=== PATIENT | female | born 1985 | race Caucasian/White ===

== ENCOUNTER 2017-08-30 00:55 | Inpatient (IN) | payer OTHER ==
[2017-08-30] MEDS ORDERED: METHYLERGONOVINE 0.2 MG/ML 1 ML AMP IM PRN (01:23)
[2017-08-30] MEDS ORDERED: OXYTOCIN 10 UNIT/ML 1 ML VIAL IM PRN (01:23)
[2017-08-30] MEDS ORDERED: LIDOCAINE 1% (PF) 10 MG/ML (30 ML SDV) SQ PRN (01:23)
[2017-08-30] MEDS ORDERED: AMPICILLIN 2,000 MG in SODIUM CHLORIDE 0.9% 100 ML IVPB STA (01:23)
[2017-08-30] MEDS ORDERED: CARBOPROST TROMETHAMINE 250 MCG/ML 1 ML AMP IM PRN (01:23)
[2017-08-30] MEDS ORDERED: TERBUTALINE 1 MG/ML VIAL SQ PRN (01:23)
[2017-08-30] MEDS ORDERED: LACTATED RINGERS 1,000 ML IV SCH (01:30)
[2017-08-30 01:38] VITALS: BMI 26.9
[2017-08-30 02:06] LABS: Basophils % (A) 0 %; Eosinophils # (A) 0.3 k/uL (0-0.7); Eosinophils % (A) 2 %; HCT 32.1 % (34.0-46.0); HGB 10.9 gm/dL (11.4-16.0); Lymphocytes # (A) 1.8 k/uL (1.0-4.8); Lymphocytes % (A) 17 %; MCH 30.3 pg (25.0-35.0); MCHC 34.1 g/dL (31.0-37.0); MCV 88.7 fL (80.0-100.0); Mean Platelet Volume 7.8; Monocytes # (A) 0.5 k/uL (0-1.0); Monocytes % (A) 4 %; Neutrophils # (A) 8.1 k/uL (1.3-7.7); Neutrophils % (A) 73 %; Platelet Count 312 k/uL (150-450); RBC 3.62 m/uL (3.80-5.40); RDW 13.4 % (11.5-15.5)
[2017-08-30] MEDS ORDERED: BUTORPHANOL 1 MG/ML 1 ML VIAL IV PRN (02:31)
--- NOTE | 2017-08-30 05:12 | P.HPOB ---
History of Present Illness H&P Date: 08/30/17 Chief Complaint: SROM 32 year old presents at 39 weeks 2 days with SROM. SHe is sindy irregularly and heart tones are 130's and reactive. cervix is 3/70/-2. Review of Systems All systems: negative Constitutional: Denies chills, Denies fever Eyes: denies blurred vision, denies pain Ears, nose, mouth and throat: Denies headache, Denies sore throat Cardiovascular: Denies chest pain, Denies shortness of breath Respiratory: Denies cough Gastrointestinal: Denies abdominal pain, Denies diarrhea, Denies nausea, Denies vomiting Genitourinary: Denies dysuria, Denies hematuria Musculoskeletal: Denies myalgias Integumentary: Denies pruritus, Denies rash Neurological: Denies numbness, Denies weakness Psychiatric: Denies anxiety, Denies depression Endocrine: Denies fatigue, Denies weight change Past Medical History Past Medical History: No Reported History Additional Past Medical History / Comment(s): Obstetric history: She has had 3 previous vaginal deliveries and one miscarriage at 18 weeks. This is her fifth . She's had care with Dr. Alcazar since 24 weeks. Blood type A positive, antibodies negative, rubella immune, RPR nonreactive, hepatitis B negative, HIV negative, abnormal 1 hour close tolerance test but normal 3 hour, GBS positive. History of Any Multi-Drug Resistant Organisms: None Reported Additional Past Surgical History / Comment(s): wisdom teeth removed Past Anesthesia/Blood Transfusion Reactions: No Reported Reaction Past Psychological History: No Psychological Hx Reported Smoking Status: Never smoker Past Drug Use History: None Reported - Past Family History Father Additional Family Medical History / Comment(s): grandfather heart disease Medications and Allergies Home Medications Medication Instructions Recorded Confirmed Type Iron/Folate 9/Vit C/D3/B6/B12 1 each PO DAILY 08/30/17 08/30/17 History [Nufera Tablet] Pnv No.95/Ferrous Fum/Folic AC 1 tab DAILY 08/30/17 08/30/17 History [ Multivitamin Tablet] Allergies Allergy/AdvReac Type Severity Reaction Status Date / Time No Known Allergies Allergy Verified 08/30/17 01:20 Exam Osteopathic Statement: *. No significant issues noted on an osteopathic structural exam other than those noted in the History and Physical/Consult. - Vital Signs Vital signs: Vital Signs Temp Pulse Resp BP Pulse Ox 08/30/17 01:25 98.8 F 82 16 128/81 100 08/30/17 01:20 98.8 F 82 16 128/81 Intake and Output 08/29/17 08/29/17 08/30/17 14:59 22:59 06:59 Other: Weight 66.678 kg Patient Weight 08/30/17 06:59 Weight 66.678 kg Heart: Regular rate and rhythm Lungs: Clear to auscultation bilaterally Abdomen: Soft, nontender Extremities: Negative Homans sign Results Result Diagrams: 08/30/17 01:35 Abnormal Lab Results - Last 24 Hours (Table) 08/30/17 Range/Units 01:35 WBC 11.0 H (3.8-10.6) k/uL RBC 3.62 L (3.80-5.40) m/uL Hgb 10.9 L (11.4-16.0) gm/dL Hct 32.1 L (34.0-46.0) % Neutrophils # 8.1 H (1.3-7.7) k/uL Assessment and Plan (1) Spontaneous rupture of membranes Current Visit: Yes Status: Acute Code(s): CFH5228 - SNOMED Code(s): 837716881 (2) Normal labor Current Visit: Yes Status: Acute Code(s): O80 - ENCOUNTER FOR FULL-TERM UNCOMPLICATED DELIVERY; Z37.9 - OUTCOME OF DELIVERY, UNSPECIFIED SNOMED Code(s ): 03136188 (3) Positive GBS test Current Visit: Yes Status: Acute Code(s): B95.1 - STREPTOCOCCUS, GROUP B, CAUSING DISEASES [place] SNOMED Code(s): 1854416215304 Plan: 1. Admit to family place 2. Antibiotics for GBS prophylaxis 3. Expectant management 4. Anticipate normal vaginal delivery
[2017-08-30] MEDS ORDERED: AMPICILLIN 1,000 MG in SODIUM CHLORIDE 0.9% 50 ML IVPB SCH (05:30)
[2017-08-30] MEDS ORDERED: ZOLPIDEM 5 MG TAB PO PRN (06:21)
[2017-08-30] MEDS ORDERED: diphenhydrAMINE 50 MG CAP PO PRN (06:21)
[2017-08-30] MEDS ORDERED: BENZOCAINE/MENTHOL SPRAY 1 GM/SPRAY AEROSOL TOPICAL PRN (06:21)
[2017-08-30] MEDS ORDERED: WITCH HAZEL 1 EACH MED..PAD TOPICAL PRN (06:21)
[2017-08-30] MEDS ORDERED: HYDROCORTISONE 2.5% RECTAL CREAM 30 GM TUBE RECTAL PRN (06:21)
[2017-08-30] MEDS ORDERED: SIMETHICONE 80 MG CHEWABLE PO PRN (06:21)
[2017-08-30] MEDS ORDERED: diphenhydrAMINE 50 MG/ML 1 ML VIAL IVP PRN ×2 (06:21)
[2017-08-30] MEDS ORDERED: LANOLIN CREAM 5 GM TUBE TOPICAL PRN (06:21)
[2017-08-30] MEDS ORDERED: diphenhydrAMINE 25 MG CAP PO PRN (06:21)
[2017-08-30] MEDS ORDERED: HYDROcodone/APAP 5-325MG 1 EACH TAB PO PRN ×2 (06:21)
--- NOTE | 2017-08-30 06:24 | P.PROBDLV ---
Vaginal Delivery Note - . Vaginal Delivery Note: 32-year-old presents at 39 weeks and 2 days with spontaneous rupture membranes and in labor. Her cervix is 3 cm dilated, 70% effaced, -2 station. She is sindy irregularly. heart tones are 130-135 with moderate variability and reactive. Her water broke at 12:30 AM with clear fluid. She is GBS positive on was started for GBS prophylaxis. Her cervix was completely dilated by 5:58 AM, she pushed and delivered a viable female infant over intact perineum at 6:12 AM. Head delivered OA, anterior shoulder delivered with gentle downward traction followed by posterior shoulder and rest of body. Nose and mouth bulb suctioned, cord clamped and cut, infant placed on mother's abdomen. Apgars 9, 9, weight 8 lbs. 5 oz. Placenta delivered spontaneously, intact with three-vessel cord at 6:14 AM. Vagina, cervix, and perineum were inspected. No lacerations noted. Estimated blood loss 150 mL. Mother and baby in stable condition.
[2017-08-30] MEDS ORDERED: OXYTOCIN 20 UNITS/1000 ML NS 1,000 ML IV SCH (06:30)
[2017-08-30] MEDS: IBUPROFEN 600 MG TAB PO PRN ×2 (06:36→20:49)
[2017-08-30] MEDS: ACETAMINOPHEN TAB 325 MG TAB PO PRN ×2 (11:59→16:23)
[2017-08-30] MEDS: SENNOSIDES-DOCUSATE SODIUM 1 EACH TAB PO SCH ×2 (19:35→22:23)
[2017-08-31 00:19] VITALS: PULSE 81
[2017-08-31] MEDS: ACETAMINOPHEN TAB 325 MG TAB PO PRN (02:54)
--- NOTE | 2017-08-31 06:59 | P.DS ---
Providers Date of admission: 08/30/17 01:12 Expected date of discharge: 08/31/17 Attending physician: Junior Alcazar Primary care physician: Stated None Hospital Course: Tej is doing very well day 1. She is ambulating, voiding, and she is tolerating her diet. She voices no complaints and requests discharged home today. Vital signs are stable and afebrile. Heart regular, lungs clear, extremities are without pain. Abdomen is soft, uterus is firm below the umbilicus, and lochia is reported to be light. Assessment day 1. Plan discharged home follow me in 6 weeks. Prescription for Motrin was sent to the pharmacy. All other questions are answered for her prior to her discharge. She is stable for discharge this time. Patient Condition at Discharge: Good Plan - Discharge Summary New Discharge Prescriptions: New Ibuprofen [Motrin] 600 mg PO Q6HR PRN #30 tab PRN Reason: Pain No Action Pnv No.95/Ferrous Fum/Folic AC [ Multivitamin Tablet] 1 tab DAILY Iron/Folate 9/Vit C/D3/B6/B12 [Nufera Tablet] 1 each PO DAILY Discharge Medication List Iron/Folate 9/Vit C/D3/B6/B12 [Nufera Tablet] 1 each PO DAILY 08/30/17 [History] Pnv No.95/Ferrous Fum/Folic AC [ Multivitamin Tablet] 1 tab DAILY [History] Ibuprofen [Motrin] 600 mg PO Q6HR PRN #30 tab 08/31/17 [Rx] Follow up Appointment(s)/Referral(s): Junior Alcazar DO [Doctor of Osteopathic Medicine] - 6 Weeks Activity/Diet/Wound Care/Special Instructions: No heavy lifting, limit stairs and driving, and pelvic rest. If any high temperatures, heavy bleeding, or severe pain call my office Discharge Disposition: HOME SELF-CARE
[2017-08-31] MEDS: IBUPROFEN 600 MG TAB PO PRN (07:45)
[2017-08-31] MEDS: SENNOSIDES-DOCUSATE SODIUM 1 EACH TAB PO SCH (07:45)
[2017-08-31 08:44] VITALS: BP 112/73; RESP 17; TEMP 98
== END 2017-08-31 11:55 | disposition home or self-care (01) | DRG 775 ==
LOC: FBPOP 00:55 → 4FBP 01:12
PROVIDERS: ADMIT Obstetrics & Gynecology; ATTEND Obstetrics & Gynecology
PROC: 10E0XZZ Delivery of Products of Conception, External Approach (ICD-10-PCS; principal; 2017-08-30)
DX: O99.824 Streptococcus B carrier state complicating childbirth (principal); Z37.0 Single live birth; Z3A.39 39 weeks gestation of pregnancy
CPT/HCPCS: 85025; 88307

== ENCOUNTER 2021-06-26 21:36 | Observation (INO) | payer OTHER ==
--- NOTE | 2021-06-26 22:52 | ED ---
Arrhythmia/Palpitations HPI - General Chief Complaint: Arrhythmia/Palpitations Stated Complaint: Irregular heart rate Time Seen by Provider: 06/26/21 22:49 Source: patient, family, RN notes reviewed, old records reviewed Mode of arrival: ambulatory Limitations: no limitations, physical limitation - History of Present Illness Initial Comments: This is a 36-year-old female to the emergency department today. Patient's presents today for what she believes or palpitations. This is a follow-up visit for primary care. She's had persistent worsening palpitations here in the ER. Patient has no chest pain no shortness of breath just feels like her heart is continuing to skip beats. This is been a new onset symptom for her but she's had a 4 times in the past. She was started on any medication this week and took it last night. Patient no fevers contacts no travel history. No significant medical history takes no medications does not drink smoke MD Complaint: "skipped beats", palpitations, irregular heart beat -: days(s) Context: occurred during rest, occurred during exertion Associated Symptoms: shortness of breath, anxiety Treatments Prior to Arrival: beta-horacio - Related Data Home Medications Medication Instructions Recorded Confirmed Melatonin [Melatonin Chew] 10 mg PO HS PRN 06/27/21 06/27/21 Pedi Multivit No.25/Folic Acid 600 mcg PO DAILY 06/27/21 06/27/21 [Flintstones Multivit Chew Tab] atenoloL [Tenormin] 25 mg PO DAILY 06/27/21 06/27/21 Previous Rx's Medication Instructions Recorded Potassium Chloride ER [K-Dur 10] 10 meq PO DAILY 90 Days #90 tablet 06/27/21 Allergies Allergy/AdvReac Type Severity Reaction Status Date / Time No Known Allergies Allergy Verified 06/27/21 08:19 Review of Systems ROS Statement: Those systems with pertinent positive or pertinent negative responses have been documented in the HPI. ROS Other: All systems not noted in ROS Statement are negative. Past Medical History Past Medical History: No Reported History Additional Past Medical History / Comment(s): Obstetric history: She has had 3 previous vaginal deliveries and one miscarriage at 18 weeks. This is her fifth . She's had care with Dr. Alcazar since 24 weeks. Blood type A positive, antibodies negative, rubella immune, RPR nonreactive, hepatitis B negative, HIV negative, abnormal 1 hour close tolerance test but normal 3 hour, GBS positive. anemia History of Any Multi-Drug Resistant Organisms: None Reported Additional Past Surgical History / Comment(s): wisdom teeth removed Past Anesthesia/Blood Transfusion Reactions: No Reported Reaction Past Psychological History: No Psychological Hx Reported Smoking Status: Never smoker Past Alcohol Use History: None Reported, Occasional Past Drug Use History: None Reported - Past Family History Father Additional Family Medical History / Comment(s): grandfather heart disease Mother Family Medical History: Thyroid Disorder General Exam Limitations: physical limitation General appearance: alert, in no apparent distress Head exam: Present: atraumatic, normocephalic, normal inspection Eye exam: Present: normal appearance, PERRL, EOMI. Absent: scleral icterus, conjunctival injection, periorbital swelling ENT exam: Present: normal exam, mucous membranes moist Neck exam: Present: normal inspection. Absent: tenderness, meningismus, lymphadenopathy Respiratory exam: Present: normal lung sounds bilaterally. Absent: respiratory distress, wheezes, rales, rhonchi, stridor Cardiovascular Exam: Present: regular rate, normal rhythm, normal heart sounds. Absent: systolic murmur, diastolic murmur, rubs, gallop, clicks GI/Abdominal exam: Present: soft, normal bowel sounds. Absent: distended, tenderness, guarding, rebound, rigid Extremities exam: Present: normal inspection, full ROM, normal capillary refill. Absent: tenderness, pedal edema, joint swelling, calf tenderness Back exam: Present: normal inspection Neurological exam: Present: alert, oriented X3, CN II-XII intact Psychiatric exam: Present: normal affect, normal mood Skin exam: Present: warm, dry, intact, normal color. Absent: rash Course Vital Signs 06/26/21 06/26/21 06/27/21 22:09 23:15 05:18 Temperature 98.6 F Pulse Rate 83 73 Pulse Rate [ 70 Debt Counselor ] Respiratory 18 16 Rate Blood Pressure 127/76 109/65 Blood Pressure [Left Arm] Blood Pressure [Right Arm] O2 Sat by Pulse 100 98 Oximetry 06/27/21 06/27/21 07:30 09:30 Temperature 98.2 F Pulse Rate Pulse Rate [ 80 80 Debt Counselor ] Respiratory 16 16 Rate Blood Pressure Blood Pressure 129/74 [Left Arm] Blood Pressure 106/65 [Right Arm] O2 Sat by Pulse 98 99 Oximetry - Reevaluation(s) Reevaluation #1: Medical record is reviewed Patient symptoms are significant family improved Patient informed results and questions answered - Consultations Consultation #1: Spoke with Dr. Wolff who agrees to admit the patient EKG Findings - EKG Comments: EKG Findings:: EKG is sinus rhythm 81 [place] 122 QRS 100 QTc 457. repeat. EKG sinus rhythm 83 [place] 148 QRS 42 QTC 474 with 1 PVC Medical Decision Making - Medical Decision Making 36 female palpitations we will admit for cardiology to evaluate. Patient has no underlying medical history, patient does have PVCs. - Lab Data Result diagrams: 06/27/21 00:52 06/27/21 00:52 Lab Results 06/27/21 06/27/21 06/27/21 Range/Units 00:52 00:52 00:52 WBC 9.3 (3.8-10.6) k/uL RBC 4.02 (3.80-5.40) m/uL Hgb 12.3 (11.4-16.0) gm/dL Hct 37.2 (34.0-46.0) % MCV 92.4 (80.0-100.0) fL MCH 30.5 (25.0-35.0) pg MCHC 33.0 (31.0-37.0) g/dL RDW 11.9 (11.5-15.5) % Plt Count 342 (150-450) k/uL MPV 7.8 Neutrophils % 63 % Lymphocytes % 26 % Monocytes % 5 % Eosinophils % 3 % Basophils % 1 % Neutrophils # 5.9 (1.3-7.7) k/uL Lymphocytes # 2.4 (1.0-4.8) k/uL Monocytes # 0.4 (0-1.0) k/uL Eosinophils # 0.3 (0-0.7) k/uL Basophils # 0.1 (0-0.2) k/uL D-Dimer <0.17 (<0.60) mg/L FEU Sodium 138 (137-145) mmol/L Potassium 3.3 L (3.5-5.1) mmol/L Chloride 104 (98-107) mmol/L Carbon Dioxide 23 (22-30) mmol/L Anion Gap 11 mmol/L BUN 10 (7-17) mg/dL Creatinine 0.74 (0.52-1.04) mg/dL Est GFR (CKD-EPI)AfAm >90 (>60 ml/min/1.73 sqM) Est GFR (CKD-EPI)NonAf >90 (>60 ml/min/1.73 sqM) Glucose 96 (74-99) mg/dL Calcium 10.0 (8.4-10.2) mg/dL Phosphorus 4.4 (2.5-4.5) mg/dL Magnesium 1.8 (1.6-2.3) mg/dL Total Bilirubin 0.6 (0.2-1.3) mg/dL AST 23 (14-36) U/L ALT 13 (4-34) U/L Alkaline Phosphatase 44 (38-126) U/L Troponin I (0.000-0.034) ng/mL NT-Pro-B Natriuret Pep pg/mL Total Protein 7.8 (6.3-8.2) g/dL Albumin 4.6 (3.5-5.0) g/dL TSH 8.340 H (0.465-4.680) mIU/L Free T4 (0.78-2.19) ng/dL 06/27/21 06/27/21 06/27/21 Range/Units 00:52 00:52 00:52 WBC (3.8-10.6) k/uL RBC (3.80-5.40) m/uL Hgb (11.4-16.0) gm/dL Hct (34.0-46.0) % MCV (80.0-100.0) fL MCH (25.0-35.0) pg MCHC (31.0-37.0) g/dL RDW (11.5-15.5) % Plt Count (150-450) k/uL MPV Neutrophils % % Lymphocytes % % Monocytes % % Eosinophils % % Basophils % % Neutrophils # (1.3-7.7) k/uL Lymphocytes # (1.0-4.8) k/uL Monocytes # (0-1.0) k/uL Eosinophils # (0-0.7) k/uL Basophils # (0-0.2) k/uL D-Dimer (<0.60) mg/L FEU Sodium (137-145) mmol/L Potassium (3.5-5.1) mmol/L Chloride (98-107) mmol/L Carbon Dioxide (22-30) mmol/L Anion Gap mmol/L BUN (7-17) mg/dL Creatinine (0.52-1.04) mg/dL Est GFR (CKD-EPI)AfAm (>60 ml/min/1.73 sqM) Est GFR (CKD-EPI)NonAf (>60 ml/min/1.73 sqM) Glucose (74-99) mg/dL Calcium (8.4-10.2) mg/dL Phosphorus (2.5-4.5) mg/dL Magnesium (1.6-2.3) mg/dL Total Bilirubin (0.2-1.3) mg/dL AST (14-36) U/L ALT (4-34) U/L Alkaline Phosphatase (38-126) U/L Troponin I <0.012 (0.000-0.034) ng/mL NT-Pro-B Natriuret Pep 71 pg/mL Total Protein (6.3-8.2) g/dL Albumin (3.5-5.0) g/dL TSH (0.465-4.680) mIU/L Free T4 1.48 (0.78-2.19) ng/dL Disposition Clinical Impression: Palpitations, PVC (premature ventricular contraction) Disposition: ADMITTED IP TO THIS HOSP Condition: Good Is patient prescribed a controlled substance at d/c from ED?: No
[2021-06-26] MEDS ORDERED: SODIUM CHLORIDE 0.9% 1,000 ML IV STA (23:29)
[2021-06-27 01:36] LABS: ALT 13 U/L (4-34); AST 23 U/L (14-36); African American GFR (CKD) >90 (>60 ml/min/1.73 sqM); Albumin 4.6 g/dL (3.5-5.0); Alkaline Phosphatase 44 U/L (38-126); Anion Gap 11 mmol/L; Basophils # (A) 0.1 k/uL (0-0.2); Basophils % (A) 1 %; Blood Urea Nitrogen 10 mg/dL (7-17); Carbon Dioxide 23 mmol/L (22-30); Chloride 104 mmol/L (98-107); Eosinophils # (A) 0.3 k/uL (0-0.7); Eosinophils % (A) 3 %; Glucose 96 mg/dL (74-99); HCT 37.2 % (34.0-46.0); HGB 12.3 gm/dL (11.4-16.0); Lymphocytes # (A) 2.4 k/uL (1.0-4.8); Lymphocytes % (A) 26 %; MCH 30.5 pg (25.0-35.0); MCV 92.4 fL (80.0-100.0); Magnesium 1.8 mg/dL (1.6-2.3); Mean Platelet Volume 7.8; Monocytes # (A) 0.4 k/uL (0-1.0); Monocytes % (A) 5 %; Neutrophils # (A) 5.9 k/uL (1.3-7.7); Neutrophils % (A) 63 %; Non-African American GFR(CKD) >90 (>60 ml/min/1.73 sqM); Phosphorus 4.4 mg/dL (2.5-4.5); Platelet Count 342 k/uL (150-450); Potassium 3.3 mmol/L (3.5-5.1); RBC 4.02 m/uL (3.80-5.40); RDW 11.9 % (11.5-15.5); Sodium 138 mmol/L (137-145); Total Bilirubin 0.6 mg/dL (0.2-1.3); Total Protein 7.8 g/dL (6.3-8.2); WBC 9.3 k/uL (3.8-10.6)
[2021-06-27] MEDS ORDERED: POTASSIUM BICARBONATE/CIT AC 20 MEQ TABLET.EFF PO ONE (02:24)
[2021-06-27] MEDS ORDERED: IBUPROFEN 400 MG TAB PO PRN (03:40)
[2021-06-27] MEDS ORDERED: NALOXONE 0.4 MG/ML 1 ML VIAL IV PRN (03:40)
[2021-06-27] MEDS ORDERED: ACETAMINOPHEN TAB 325 MG TAB PO PRN (03:40)
[2021-06-27] MEDS ORDERED: SODIUM CHLORIDE 0.9% 1,000 ML IV SCH (03:45)
[2021-06-27 05:19] VITALS: RESP 16
[2021-06-27 07:44] VITALS: TEMP 98.2
--- NOTE | 2021-06-27 10:01 | P.CRDCN ---
History of Present Illness History of present illness: HISTORY OF PRESENTING ILLNESS This is a pleasant 36-year-old female with no significant past medical history. She did recently have hand, foot, mouth in April 2021 and did have an upper respiratory infection and was recently treated with Cipro by her PCP. she does not follow with a pneumatic systems operator. We have been asked to see in consultation for palpitations. Patient presents emergency department with complaints of ongoing palpitations for about 2 weeks. She states she has noticed palpitations randomly. Over the past couple days they have increased in frequency. She follow up with her primary care provider and was started on atenolol 25 mg daily. She states that yesterday she did not notice an improvement and also had sensation of numbness and tingling down her left arm and some pain in her neck and the left side of her chest. This was nonexertional. She states it resolved on its own. She denies any shortness of breath, lightheadedness, dizziness, syncope or near syncope. She denies any further chest pain. She denies any history of CAD, AL, hypertension, diabetes, stroke. She states she has a family history of her grandfather having an AL at a young age. She denies any smoking, illicit drug use or alcohol use. She is not , was in 2018. She denies a ny other changes or medication additions, denies taking any supplements or herbal supplements. DIAGNOSTICS EKG reveals sinus mechanism, heart rate 83, no significant STT wave abnormalities, occasional PVCs Telemetry tracings indicate sinus mechanism, heart rate 70s80s, occasional PVCs. Chest xray no acute cardiopulmonary process Laboratory reviewed, CBC unremarkable, d-dimer negative, troponin negative 1, Covid 19 negative, sodium 138, potassium 3.9, BUN 10, serum creatinine 0.7, magnesium 1.8, TSH 8.3, free T4 1 0.4 Current home medications include multivitamin, atenolol 25 mg daily REVIEW OF SYSTEMS At the time of my exam: CONSTITUTIONAL: Denies fever or chills. CARDIOVASCULAR: Denies chest pain, shortness of breath, orthopnea, PND , Reports palpitations. RESPIRATORY: Denies cough. GASTROINTESTINAL: Denies abdominal pain, diarrhea, constipation, nausea or vomiting. MUSCULOSKELETAL: Denies myalgias. NEUROLOGIC: Denies numbness, tingling, headache or weakness. ENDOCRINE: Denies fatigue, weight change, polydipsia or polyurina. GENITOURINARY: Denies burning, hematuria or urgency with micturation. HEMATOLOGIC: Denies history of anemia or bleeding. PHYSICAL EXAMINATION Vitals reviewed CONSTITUTIONAL: No apparent distress. HEENT: Head is normocephalic. Pupils are equal, round. Sclerae anicteric. Mucous membranes of the mouth are moist. No JVD. No carotid bruit. CHEST EXAMINATION: Lungs are clear to auscultation. No chest wall tenderness is noted on palpation or with deep breathing. HEART EXAMINATION: Regular rate and rhythm. S1, S2 heard. No murmurs, gallops or rub. ABDOMEN: Soft, nontender. Positive bowel sounds. EXTREMITIES: 2+ peripheral pulses, no lower extremity edema and no calf tenderness. SKIN: warm, dry NEUROLOGIC EXAMINATION: Patient is awake, alert and oriented x3. ASSESSMENT Palpitations Occasional premature ventricular complexes Hypokalemia PLAN Obtain 2D echocardiogram and doppler study to assess cardiac structure and function. Perform stress echo test to assess for stress induced cardiac ischemia. Patient may benefit from daily magnesium supplementation If stress test is negative, ok to discharge from cardiology standpoint and follo w up outpatient. Thank you kindly for this consultation. Nurse Practitioner note has been reviewed, I agree with a documented findings and plan of care. Patient was seen and examined. Past Medical History Past Medical History: No Reported History Additional Past Medical History / Comment(s): Obstetric history: She has had 3 p revious vaginal deliveries and one miscarriage at 18 weeks. This is her fifth . She's had care with Dr. Alcazar since 24 weeks. Blood type A positive, antibodies negative, rubella immune, RPR nonreactive, hepatitis B negative, HIV negative, abnormal 1 hour close tolerance test but normal 3 hour, GBS positive. anemia History of Any Multi-Drug Resistant Organisms: None Reported Additional Past Surgical History / Comment(s): wisdom teeth removed Past Anesthesia/Blood Transfusion Reactions: No Reported Reaction Past Psychological History: No Psychological Hx Reported Smoking Status: Never smoker Past Alcohol Use History: None Reported, Occasional Past Drug Use History: None Reported - Past Family History Father Additional Family Medical History / Comment(s): grandfather heart disease Medications and Allergies Home Medications Medication Instructions Recorded Confirmed Type Melatonin [Melatonin Chew] 10 mg PO HS PRN 01/07/22 01/07/22 History Pedi Multivit No.25/Folic Acid 600 mcg PO DAILY 06/27/21 06/27/21 History [Flintstones Multivit Chew Tab] atenoloL [Tenormin] 25 mg PO DAILY 06/27/21 06/27/21 History Allergies Allergy/AdvReac Type Severity Reaction Status Date / Time No Known Allergies Allergy Verified 06/27/21 08:19 Physical Exam Vitals: Vital Signs Temp Pulse Pulse Resp BP Pulse Ox 06/27/21 05:18 73 16 109/65 98 06/26/21 23:15 70 06/26/21 22:09 98.6 F 83 18 127/76 100 Intake and Output 06/26/21 06/27/21 06/27/21 22:59 06:59 14:59 Other: Weight 51.71 kg Results 06/27/21 00:52 06/27/21 00:52 Cardiac Enzymes 06/27/21 06/27/21 Range/Units 00:52 00:52 AST 23 (14-36) U/L Troponin I <0.012 (0.000-0.034) ng/mL CBC 06/27/21 Range/Units 00:52 WBC 9.3 (3.8-10.6) k/uL RBC 4.02 (3.80-5.40) m/uL Hgb 12.3 (11.4-16.0) gm/dL Hct 37.2 (34.0-46.0) % Plt Count 342 (150-450) k/uL Comprehensive Metabolic Panel 06/27/21 Range/Units 00:52 Sodium 138 (137-145) mmol/L Potassium 3.3 L (3.5-5.1) mmol/L Chloride 104 (98-107) mmol/L Carbon Dioxide 23 (22-30) mmol/L BUN 10 (7-17) mg/dL Creatinine 0.74 (0.52-1.04) mg/dL Glucose 96 (74-99) mg/dL Calcium 10.0 (8.4-10.2) mg/dL AST 23 (14-36) U/L ALT 13 (4-34) U/L Alkaline Phosphatase 44 (38-126) U/L Total Protein 7.8 (6.3-8.2) g/dL Albumin 4.6 (3.5-5.0) g/dL Current Medications Generic Name Dose Route Start Last Admin Trade Name Freq PRN Reason Stop Dose Admin Acetaminophen 650 mg 06/27/21 03:40 Acetaminophen Tab 325 Mg Tab PO Q6HR PRN Mild Pain or Fever > 100.5 Sodium Chloride 1,000 mls @ 130 mls/hr 06/27/21 03:45 Saline 0.9% IV .Q7H42M [facility] Ibuprofen 400 mg 06/27/21 03:40 Ibuprofen 400 Mg Tab PO Q6HR PRN Mild Pain or Fever > 100.5 Naloxone HCl 0.2 mg 06/27/21 03:40 Naloxone 0.4 Mg/Ml 1 Ml Vial IV Q2M PRN Opioid Reversal Intake and Output 06/26/21 06/27/21 06/27/21 22:59 06:59 14:59 Other: Weight 51.71 kg 06/27/21 00:52 06/27/21 00:52
--- NOTE | 2021-06-27 12:59 | P.STRESS ---
- Stress Test Note Stress Test Results/Findings: Exam Performed: stress echo exercise Exam Date: 06/27/21 Reason for Exam: pvcs Height: 5 ft 3 in Weight: 51.71 kg Protocol: alex Stage: 4 Duration of Exercise: 11 min Resting Heart Rate: 110 Resting Blood Pressure: 111/63 Maximum Achieved Heart Rate: 181 Maximum Achieved Blood Pressure: 134/59 85% PMHR: 156 100% PMHR: 183 METS: 11.1 Technologist Comment: Stress Test Results/Findings: Patient underwent exercise stress echo with a Alex protocol treadmill stress test. Patient exercised into Stage 4 for a total of 10 minutes reaching a total of 11.1 METS. Patient's maximum heart rate was 181 which represented 100% age- predicted maximum heart rate. Stress EKG portion: At baseline patient's EKG showed normal sinus rhythm, rare PVCs, 0.[address] depressions in the inferior leads. At peak exercise, EKG showed significant change from baseline. Stress echo portion: 2-D echocardiogram was performed in the parasternal long, personal short, apical 2 and apical four-chamber views at rest, peak exercise and in recovery. At baseline, echocardiogram showed left ventricular ejection fraction 60% without wall motion abnormalities. With peak exercise, echocardiogram shows improvement in left ventricular ejection fraction, increase contractility, decrease in left ventricular end systolic dimension without wall motion abnormalities consistent with a normal response to exercise. Conclusions: 1. Normal echo response to exercise without evidence of inducible ischemia. 2. Excellent exercise capacity. 3. Normal EF 60% 4. Baseline EKG abnormalities.
[2021-06-27 15:21] VITALS: BP 110/62; PULSE 96
[2021-06-27] MEDS ORDERED: POTASSIUM CHLORIDE ER 10 MEQ TAB.ER.PRT PO SCH (15:30)
== END 2021-06-27 16:24 | disposition home or self-care (01) ==
LOC: EC 21:36 → 1SOBS 06-27 03:40 → 6NMEDSUR 06-27 07:53
PROVIDERS: ADMIT Family Medicine; ATTEND Family Medicine
DX: R00.2 Palpitations (principal); R07.89 Other chest pain; R20.0 Anesthesia of skin; R20.2 Paresthesia of skin; M54.2 Cervicalgia; I49.9 Cardiac arrhythmia, unspecified; E87.6 Hypokalemia; R94.31 Abnormal electrocardiogram [ECG] [EKG]; R06.02 Shortness of breath; F41.9 Anxiety disorder, unspecified; I49.3 Ventricular premature depolarization; Z20.822 Contact with and (suspected) exposure to COVID-19; Z79.899 Other long term (current) drug therapy; Z82.49 Family history of ischemic heart disease and other diseases of the circulatory system; Z83.49 Family history of other endocrine, nutritional and metabolic diseases
CPT/HCPCS: 99285; 36415; 93005; 93306; 93351; 85379; 84439; 83880; 80053; 83735; 84100; 84443; 84484; 85025; 87635; G0378 ×2

== ENCOUNTER → 2021-08-13 | Outpatient (CLI) | payer OTHER ==
--- NOTE | 2021-08-13 16:17 | US ---
EXAMINATION TYPE: US thyroid st tissue head/neck DATE OF EXAM: 08/13/2021 COMPARISON: NONE CLINICAL HISTORY: E03.9 HYPOTHYROIDISM. hypothyroid, just started meds GLAND SIZE: Right Lobe: 4.5 x 1.5 x 1.8 cm Overall Parenchyma: heterogenous Left Lobe: 3.9 x 1.3 x 1.9 cm Overall Parenchyma: heterogeneous Isthmus Thickness: 0.3 cm NODULES RIGHT: # of nodules measured on right: 0 LEFT: # of nodules measured on left: 0 ISTHMUS: # of nodules measured in the isthmus: 0 Bilateral neck scanned, no evidence of lymphadenopathy. IMPRESSION: 1. Borderline prominence right lobe thyroid. 2. No suspicious nodules.
== END | disposition home or self-care (01) ==
LOC: RADUSWWP 12:48
PROVIDERS: ATTEND Internal Medicine
DX: E03.9 Hypothyroidism, unspecified (principal)
CPT/HCPCS: 76536

== ENCOUNTER → 2022-03-11 | Outpatient (CLI) | payer OTHER ==
[2022-03-11 14:44] LABS: Basophils # (A) 0.02 X 10*3/uL (0.00-0.10); Basophils % (A) 0.7 %; Eosinophils # (A) 0.01 X 10*3/uL (0.04-0.35); Eosinophils % (A) 0.4 %; HCT 39.3 % (37.2-46.3); Immature Grans, Automated 0.4 %; Lymphocytes # (A) 1.04 X 10*3/uL (0.90-5.00); Lymphocytes % (A) 38.1 %; MCH 30.8 pg (27.0-32.0); MCHC 33.1 g/dL (32.0-37.0); MCV 93.1 fL (80.0-97.0); Mean Platelet Volume 11.1 fL (9.5-12.2); Monocytes # (A) 0.17 X 10*3/uL (0.20-1.00); Monocytes % (A) 6.2 %; NRBC Per 100 WBC 0 /100 WBCS (0.0-0.0); Neutrophils # (A) 1.48 X 10*3/uL (1.80-7.70); Neutrophils % (A) 54.2 %; Platelet Count 230 X 10*3/uL (140-440); RBC 4.22 X 10*6/uL (4.10-5.20); RDW 11.9 % (11.5-14.5); WBC 2.73 X 10*3/uL (4.50-10.00)
[2022-03-11 16:36] LABS: African American GFR (CKD) 109.2 (60.0-200.0); Albumin 4.5 g/dL (3.8-4.9); Albumin/Globulin Ratio 1.41 (1.60-3.17); Anion Gap 12.7 mmol/L (10.00-18.00); BUN/Creat Ratio 7.13 Ratio (12.00-20.00); Blood Urea Nitrogen 5.7 mg/dL (9.0-27.0); Calcium 9.4 mg/dL (8.7-10.3); Carbon Dioxide 25.3 mmol/L (20.0-27.5); Globulin 3.2 g/dL (1.6-3.3); Magnesium 1.7 mg/dL (1.5-2.4); Non-African American GFR(CKD) 94.2 (60.0-200.0); Potassium 3.9 mmol/L (3.5-5.5); Total Bilirubin 0.3 mg/dL (0.30-1.20); Total Protein 7.7 g/dL (6.2-8.2)
== END | disposition home or self-care (01) ==
LOC: LABWHC1 10:38
PROVIDERS: ATTEND Internal Medicine
DX: U07.1 COVID-19 (principal)
CPT/HCPCS: 36415; 80053; 83735; 85025

== ENCOUNTER → 2022-11-10 | Day surgery (SDC) | payer OTHER ==
[2022-11-06 10:52] VITALS: BMI 19.5
[~2022-11-10] MED LIST: LACTATED RINGERS 1,000 ML IV ONE; LACTATED RINGERS 1,000 ML IV SCH; LIDOCAINE 1% (10MG/ML) FOR IV START INTRADERMA PRN; LIDOCAINE 2% INJ 20 MG/ML (2 ML VIAL) ONE; PROPOFOL 10 MG/ML 20 ML VIAL IV ONE
[2022-11-10 11:01] VITALS: TEMP 97
--- NOTE | 2022-11-10 11:58 | P.PCN ---
Date of Procedure: 11/10/22 Procedure(s) Performed: BRIEF HISTORY: Patient is a 37-year-old, pleasant, white female scheduled for an upper endoscopy as a part of evaluation of epigastric discomfort and belching for the last 2 years duration. She has these episodes once a month and lasts for a couple of recent results. She was treated with Prilosec 20 mg daily for 2 months and no improvement.. PROCEDURE PERFORMED: Esophagogastroduodenoscopy with biopsy. PREOPERATIVE DIAGNOSIS: Epigastric discomfort and excessive belching. IV sedation per anesthesia. PROCEDURE: After informed consent was obtained, the patient was brought into the endoscopy unit. IV sedation was administered by Anesthesia under continuous monitoring. Initially the Olympus GIF-140 video endoscope was inserted into the mouth. Esophagus intubated without any difficulty. It was gradually advanced into the stomach and duodenum and carefully examined. The bulb and the second part of the duodenum appeared normal. Biopsies were done from the duodenum to rule out celiac disease. The scope at this time was withdrawn to the stomach, adequately insufflated with air, and upon careful examination, mucosa of the antrum had mild gastritis and biopsies were done from this area. Mucosa of the, body, cardia and the fundus appeared normal. The scope was then withdrawn into the esophagus. The GE junction was located at 39 cm from the incisors. The esophagus appeared normal. There were no erosions or ulcerations seen and the patient tolerated the procedure well. IMPRESSION: 1. Mild antral gastritis. 2. No evidence of esophagitis or peptic ulcer disease. RECOMMENDATIONS: The findings of this examination were discussed with the patient as well as a family. She was advised to follow with the biopsy results. Recommend diet modification. Follow up in office as needed
[2022-11-10 12:25] VITALS: BP 112/68; PULSE 80; RESP 16
== END ==
LOC: ORWHC2ENDO 10:05
PROVIDERS: ATTEND Internal Medicine Gastroenterology
DX: K29.50 Unspecified chronic gastritis without bleeding (principal); E03.9 Hypothyroidism, unspecified; K21.9 Gastro-esophageal reflux disease without esophagitis; Z79.899 Other long term (current) drug therapy; Z79.890 Hormone replacement therapy
CPT/HCPCS: 81025; 88305; 43239; J2704; J2001

== ENCOUNTER → 2023-07-12 | Outpatient (CLI) | payer OTHER ==
--- NOTE | 2023-07-14 09:14 | MM ---
Reason for Exam: Screening (asymptomatic). Baseline mammogram. Patient History: Menarche at age 13. First Full-Term at age 25. Risk Values: Maria A 5 year model risk: 0.5%. NCI Lifetime model risk: 10.2%. Prior Study Comparison: Patient's first Mammogram. No prior studies available for comparison. Tissue Density: The breast tissue is heterogeneously dense. This may lower the sensitivity of mammography. Findings: Analyzed By CAD. There is no suspicious group of microcalcifications or new suspicious mass. Overall Assessment: Negative, BI-RAD 1 Management: Screening Mammogram of both breasts in [address] [facility] will attempt to contact patient to return for supplemental views and ultrasound if indicated. Patient should continue monthly self-breast exams. A clinical breast exam by your physician is recommended on an annual basis. This exam should not preclude additional follow-up of suspicious palpable abnormalities. Note on Maria A scores and lifetime risk: 1. A Maria A score greater than 3% is considered moderate risk. If this is the case, consider specialist referral to assess eligibility for a risk reducing agent. 2. If overall lifetime risk for the development of breast cancer is 20% or higher, the patient may qualify for future screening with alternating mammogram and breast MRI. Electronically signed and approved by: Bandar Booth DO
== END | disposition home or self-care (01) ==
LOC: RADMAMWWP 14:07
PROVIDERS: ATTEND Internal Medicine
DX: Z12.31 Encounter for screening mammogram for malignant neoplasm of breast (principal); R92.333 Mammographic heterogeneous density, bilateral breasts
CPT/HCPCS: 77063; 77067

== ENCOUNTER → 2023-10-20 | Outpatient (CLI) | payer OTHER ==
--- NOTE | 2023-10-20 10:44 | MR ---
EXAMINATION TYPE: MR brain wo/w con DATE OF EXAM: 10/20/2023 COMPARISON: None HISTORY: Headaches, dizziness. TECHNIQUE: Multiplanar, multisequence images of the brain and brainstem is performed without and with IV contras t, utilizing 5 mL intravenous Gadavist . FINDINGS: Diffusion weighted images demonstrate no evidence of a recent infarct or other diffusion ab normality. There is no extra-axial fluid collection or significant white matter signal abnormality. The ventricular system and cisternal spaces are normal in size and appearance. The brain volume is age appropriate. Midline structures demonstrate normal morphology. Low-lying cerebellar tonsils correlate. Chiari malf ormation. There is beaking of the cerebellar tonsils which lie approximately 1.1 cm below the foramen magnum. Post contrast images demonstrate no abnormal enhancement. The dural venous sinuses appear patent. Mil d changes of chronic sinusitis and the globes are intact. IMPRESSION: 1. Chiari I malformation with tonsillar beaking.
== END | disposition home or self-care (01) ==
LOC: RADMRIMAIN 09:38
PROVIDERS: ATTEND Internal Medicine
DX: G93.5 Compression of brain (principal); G44.209 Tension-type headache, unspecified, not intractable
CPT/HCPCS: 70553; A9585

== ENCOUNTER → 2023-11-03 | Outpatient (CLI) | payer OTHER ==
--- NOTE | 2023-11-03 17:57 | US ---
EXAMINATION TYPE: US thyroid st tissue head/neck DATE OF EXAM: 11/03/2023 COMPARISON: Thyroid ultrasound 08/13/2021 CLINICAL INDICATION: Female, 38 years old with history of E03.9 HYPOTHYROIDISM; Hypothyroidism GLAND SIZE: Right Lobe: 5.3 x 1.8 x 1.4 cm Overall Parenchyma: heterogeneous Left Lobe: 4.2 x 1.4 x 1.6 cm Overall Parenchyma: heterogeneous Isthmus Thickness: .2 cm NODULES RIGHT: # of nodules measured on right: 0 LEFT: # of nodules measured on left: 0 ISTHMUS: # of nodules measured in the isthmus: 0 Bilateral neck scanned, no evidence of lymphadenopathy. IMPRESSION: Diffusely heterogenous thyroid gland without discrete nodule. This can be seen with Justyn's thyro iditis.
== END | disposition home or self-care (01) ==
LOC: RADUSWWP 15:31
PROVIDERS: ATTEND Internal Medicine
DX: E03.9 Hypothyroidism, unspecified (principal); E06.3 Autoimmune thyroiditis
CPT/HCPCS: 76536

== ENCOUNTER → 2024-10-16 | Outpatient (CLI) | payer BC ==
--- NOTE | 2024-10-16 11:26 | MM ---
Reason for Exam: Screening (asymptomatic). Last mammogram was performed 1 year(s) and 3 month(s) ago. Patient History: Menarche at age 13. First Full-Term at age 25. Premenopausal. Patient has history of breast feeding. Last menstrual period: 09/01/2024 Risk Values: Maria A 5 year model risk: 0.6%. NCI Lifetime model risk: 10.2%. Prior Study Comparison: 07/12/2023 Bilateral MG 3D screening mammo w/cad, [facility]. Tissue Density: The breasts are extremely dense, which lowers the sensitivity of mammography. Findings: Analyzed By CAD. There is no suspicious new group of microcalcifications or new suspicious mass in either breast. Overall Assessment: Negative, BI-RAD 1 Management: Screening Mammogram of both breasts in 1 year. Some advise annual bilateral breast ultrasound surveillance and even possible contrast enhanced mammography in patient's with background extremely dense tissue. Patient should continue monthly self-breast exams. A clinical breast exam by your physician is recommended on an annual basis. This exam should not preclude additional follow-up of suspicious palpable abnormalities. Note on Maria A scores and lifetime risk: 1. A Maria A score greater than 3% is considered moderate risk. If this is the case, consider specialist referral to assess eligibility for a risk reducing agent. 2. If overall lifetime risk for the development of breast cancer is 20% or higher, the patient may qualify for future screening with alternating mammogram and breast MRI. [facility], , 10/16/2024 11:24 AM. Electronically signed and approved by: Compa Valentino M.D.
== END | disposition home or self-care (01) ==
LOC: RADMAMWWP 09:24
PROVIDERS: ATTEND Internal Medicine
DX: Z12.31 Encounter for screening mammogram for malignant neoplasm of breast (principal); R92.343 Mammographic extreme density, bilateral breasts
CPT/HCPCS: 77063; 77067